=== PATIENT | male | born 1950 | race Caucasian/White ===

== ENCOUNTER 2021-02-03 09:50 | Emergency (ER) | payer MEDICARE, SELFPAY ==
--- NOTE | ~2021-02-03 | CT_ITS ---
EXAMINATION: CT abdomen pelvis wo con EXAM DATE: 02/03/2021 10:18 INDICATION: Right flank pain . Hematuria. TECHNIQUE: Spiral CT of the abdomen and pelvis was performed without contrast. Axial, coronal and sag ittal images were reviewed. The dose-length product (DLP) for this examination was 432.60 mGy-cm. T he exposure was tailored according to patient size (auto mA exposure control), and iterative reconstr uction (ASIR) was used as additional dose reduction technique. Comparison is made to prior examinatio n from 11/06/2016. FINDINGS: There is a 2 mm left mid ureteral stone identified on image 148. Mild right hydronephrosis , perinephric and periureteral fat stranding. Additional punctate right inferior calyceal stone. Ther e is a 4 mm left mid calyceal stone. Moderately enlarged prostate at 5.4 cm. Small left inguinal fat -containing hernia. The bladder is unremarkable. The liver, spleen, adrenal glands and pancreas are unremarkable. There are cholecystectomy clips. There is no retroperitoneal or pelvic lymphadenopat hy. The appendix is normal. There is mild descending and sigmoid colonic diverticulosis. There is no adj acent inflammatory change to suggest diverticulitis. The stomach and small bowel are unremarkable. There is expected amount of colonic stool. No free intraperitoneal gas. The heart is normal in si ze. There are no pericardial or pleural effusions. There are bibasilar linear opacities, subsegment al atelectasis. There are no osteoblastic or osteolytic lesions identified. IMPRESSION: 1. Left mid ureteral 2 mm stone, mild obstructive nephropathy. 2. Bilateral nephrolithiasis. 3. Mild colonic diverticulosis. 4. Prostatomegaly. Reviewed, dictated and finalized at location A.
[2021-02-03 10:00] VITALS: BP 141/73; PULSE 83; RESP 18; TEMP 36.4; O2SAT 98
--- NOTE | 2021-02-03 10:17 | PC.NURSE ---
Pt to CT at this time.
[2021-02-03 10:18] LABS: Basophils Absolute Auto 0.1 K/mm3 (0.0-0.1); Basophils Percent Auto 0.5 % (0.2-1.2); Eosinophils Absolute Auto 0.1 K/mm3 (0-0.3); Eosinophils Percent Auto 0.8 % (0-4.4); Hematocrit 46.9 % (42.0-52.0); Hemoglobin 15.5 g/dL (14.0-18.0); Immature Granulocyte Absolute 0.03 K/mm3 (0.00-0.031); Immature Granulocyte Percent A 0.3 % (0-0.5); Lymphocytes Absolute Auto 2.14 K/mm3 (0.9-3.2); Lymphocytes Percent Auto 22.5 % (18.3-44.2); Mean Corpuscular Volume 90.7 fl (80-100); Mean Platelet Volume 9.6 fl (7.4-10.4); Monocytes Absolute Auto 0.6 K/mm3 (0.1-0.6); Monocytes Percent Auto 6.7 % (2.6-8.5); Neutrophils Absolute Auto 6.6 K/mm3 (1.3-6.7); Neutrophils Percent Auto 69.2 % (45.5-73.1); Platelet Count Result 207 k/mm3 (150-375); Red Blood Count 5.17 M/mm3 (4.6-6.20); Red Cell Distribution Width 13.2 % (11.5-14.5); White Blood Count 9.5 K/mm3 (4.5-10.0)
--- NOTE | 2021-02-03 10:19 | ED.BACK ---
HPI - Back Pain/Injury General Chief Complaint: Back Pain/Injury Stated Complaint: flank pain/hematuria Time Seen by Provider: 02/03/21 10:03 Source: patient Mode of arrival: ambulatory Limitations: no limitations History of Present Illness HPI Narrative: Patient is a 7-year-old male complaining of right flank pain, sharp, 6 out of 10, now 0 out of 10, nonradiating accompanied by hematuria that started this morning. Patient denies any chest pain, shortness of breath, Ch[place] pain, nausea, vomiting, diarrhea, fever or chills. Patient denies any GI bleeding. Related Data Home Medications Medication Instructions Recorded Confirmed lisinopril DAILY 02/03/21 lorazepam PRN 02/03/21 melatonin 10 mg PO HS PRN 02/03/21 mirtazapine mg HS 02/03/21 rosuvastatin mg HS 02/03/21 tamsulosin mg PO DAILY 02/03/21 Allergies Allergy/AdvReac Type Severity Reaction Status Date / Time No Known Allergies Allergy Verified 02/03/21 10:07 Review of Systems Review of Systems: All systems reviewed & are unremarkable except as noted in HPI and below Constitutional: Constitutional: Denies body ache(s), Denies chills, Denies excessive sweating, Denies fatigue, Denies fever(s), Denies headache(s), Denies lethargy, Denies malaise, Denies weakness and Denies weight loss Eyes: Eyes: Denies blurry vision, Denies change in vision and Denies loss of vision ENT: Denies dizziness, Denies ear discharge, Denies headache(s), Denies lip swelling, Denies epistaxis, Denies nasal congestion, Denies neck pain, Denies throat swelling and Denies tongue swelling Cardiovascular: Cardiovascular: Denies chest pain, Denies chest pain at rest, Denies chest pain with activity, Denies diaphoresis, Denies rapid heart rate, Denies edema, Denies irregular heart rhythm, Denies lightheadedness, Denies palpitations, Denies dyspnea and Denies dyspnea on exertion Respiratory: Respiratory: Denies chest congestion, Denies cough, Denies hemoptysis, Denies dyspnea and Denies dyspnea on exertion Gastrointestinal: Gastrointestinal: Denies abdominal pain, Denies melena, Denies hematochezia, Denies diarrhea, Denies nausea, Denies vomiting and Denies hematemesis Musculoskeletal: Musculoskeletal: Denies abnormal gait, Denies deformity, Denies joint swelling, Denies limited range of motion, Denies neck pain and Denies numbness Neurologic: Denies Abnormal speech present, Denies abnormal gait, Denies confusion, Denies dizziness, Denies headache(s), Denies focal weakness, Denies loss of vision, Denies numbness, Denies Other visual disturbances, Denies Sensory deficit (Neuro) and Denies weakness Psychiatric: Psychiatric: Denies confusion, Denies depression, Denies auditory hallucinations, Denies homicidal ideation and Denies suicidal ideation Endocrine: Endocrine: Denies cold intolerance, Denies excessive sweating, Denies fatigue, Denies heat intolerance and Denies palpitations Hematologic/Lymphatic: Hematologic/Lymphatic: Denies easy bleeding and Denies easy bruising Allergic/Immunologic: Allergic/Immunologic: Denies lip swelling, Denies throat swelling and Denies tongue swelling [facility] Social History Social History Gender identity (if verbalized by the patient): Male Comments Past medical history: Hypertension, hyperlipidemia, BPH Family history: Noncontributory Social history: Non-smoker no EtOH or drug use. Exam Const: General: cooperative, healthy appearing, comfortable, no acute distress, well developed, alert and awake; No confusion Orientation/consciousness: oriented to person, oriented to place, oriented to time, patient oriented x3 and No confusion Limitations: no limitations HENMT: Head: normal to inspection, normocephalic and atraumatic Ears: hearing grossly normal bilaterally, TM normal on the right and TM normal on the left General nose exam: Normal external nose present, Normal nares present and No nasal discharge present Face and sinus: normal facial exam Mouth:
[2021-02-03] MEDS: SODIUM CHLORIDE 0.9% IV 1,000 ML 999 ML IV CONT (10:23)
[2021-02-03 10:30] LABS: Alanine Aminotransferase 32 U/L (4-50); Albumin Level 4.6 g/dL (3.5-5.1); Alkaline Phosphatase 58 U/L (38-126); Anion Gap 8 mmol/L (8-16); Aspartate Amino Transferase 28 U/L (17-59); Bilirubin,Total 0.9 mg/dL (0.2-1.3); Blood Urea Nitrogen 13 mg/dL (9-20); Calcium 9.1 mg/dL (8.4-10.2); Carbon Dioxide 28 mmol/L (22-30); Chloride 104 mmol/L (98-107); Estimated CRCL calculation 73 ml/min; Estimated Glomerular Filt Rate > 60; Glucose 136 mg/dL (75-110); Lipase 146 U/L (23-300); Sodium 140 mmol/L (137-145)
[2021-02-03 11:02] LABS: Add Urine Microscopic? YES; Appearance Urine Cloudy (Clear); Bilirubin Urine Negative (Negative); Blood Urine 3+ (Negative); Color Urine Red (Yellow); Glucose Urine UA Negative (Negative); Ketones Urine Negative (Negative); Leukocyte Esterase Ur Negative LEU/UL (Negative); Nitrate Urine Negative (Negative); Protein Urine 2+ mg/dL (Negative); Specific Grav Ur 1.016 (1.001-1.035); Urobilinogen Urine Negative mg/dL (<2.0)
[2021-02-03 11:45] VITALS: RESP 16
== END 2021-02-03 11:46 | disposition home or self-care (01) ==
PROVIDERS: Emergency Provider Emergency Medicine; PCP Family Medicine Adolescent Medicine
DX: N13.8 Other obstructive and reflux uropathy (principal); N20.2 Calculus of kidney with calculus of ureter; I10 Essential (primary) hypertension; E78.5 Hyperlipidemia, unspecified; N40.0 Benign prostatic hyperplasia without lower urinary tract symptoms; K57.90 Diverticulosis of intestine, part unspecified, without perforation or abscess without bleeding
CPT/HCPCS: 36415; 74176; 80053; 81001; 83690; 85025; 96360; 99284; J7030

== ENCOUNTER 2021-06-11 13:23 | Emergency (ER) | payer MEDICARE, SELFPAY ==
[2021-06-11 13:42] VITALS: BP 111/78; PULSE 92; RESP 18; TEMP 36.7; O2SAT 96
--- NOTE | 2021-06-11 13:46 | ED.EAR ---
HPI - Ear Problem General Chief complaint: Ear Stated complaint: ear clogged Source: patient and RN notes reviewed Limitations: no limitations History of Present Illness HPI Narrative: The patient, who is on several routine meds, presents with ear discomfort. Patient states he has about 1/2-month history of right ear fullness and decreased hearing. Symptoms are mild, unrelieved by Debrox ; he was seen by his PMD and placed on steroids at that time for possible sinusitis. No fever, cough, nasal or ear discharge, tinnitus, vertigo but he has mild decreased hearing acuity- Related Data Home Medications Medication Instructions Recorded Confirmed lisinopril 20 mg PO DAILY 02/03/21 06/11/21 lorazepam 1 mg PO BID PRN 02/03/21 06/11/21 melatonin 10 mg PO HS PRN 02/03/21 06/11/21 mirtazapine 15 mg PO HS 02/03/21 06/11/21 rosuvastatin 5 mg PO HS 02/03/21 06/11/21 tamsulosin 0.4 mg PO DAILY 02/03/21 06/11/21 Allergies Allergy/AdvReac Type Severity Reaction Status Date / Time No Known Allergies Allergy Verified 06/11/21 13:39 Review of Systems Review of Systems: General/Constitutional: No weight loss,fever Eyes: N0: Redness,discharge Ears/Nose/Throat: No: Epistaxis,ear discharge Respiratory: Denies: Hemoptysis Gastrointestinal: No Vomiting, Bleeding-rectal Skin: No Lumps, eruption Neurologic: No Focal Weakness,Sz Hematologic: Denies: Petechiae/Purpura Psychiatric: No: Suicida ideationl All Other Systems: Reviewed and Negative PMFSH Social History Social History Gender identity (if verbalized by the patient): Male Comments At time of signature, agree with nursing past medical, surgical, social and family history. There is no relevant family history pertinent to the presenting complaint Exam Narrative: General Appearance: Well appearing, Well nourished, No distress EYE: PERRLA, EOMI Ears: Bilateral TM inspissated wax bilaterally; TMs essentially intact; external ear bilateral thickened/aged helices, Auditory canal normal Nose: Normal nose, Nares clear Mouth/Throat: Normal appearing, Normal lips Neck: Supple, No adenopathy Respiratory: Airway patent, No respiratory distress Skin: Warm, Dry Neurological: A&O x3, CN II-X intact Psychiatric: Normal mood, Normal affect Course Vital Signs Vital signs: Vital Signs Temperature 98.1 F 06/11/21 13:42 Pulse Rate 92 06/11/21 13:42 Respiratory Rate 18 06/11/21 13:42 Blood Pressure 111/78 06/11/21 13:42 Pulse Oximetry 96 06/11/21 13:42 Temperature 98.1 F 06/11/21 13:42 Pulse Rate 92 06/11/21 13:42 Respiratory Rate 18 06/11/21 13:42 Blood Pressure 111/78 06/11/21 13:42 Pulse Oximetry 96 06/11/21 13:42 Procedures FB Removal Ear Foreign Body #1: Foreign Body Removal Date: 06/11/21 Location: ear canal (R) (BY Physician) Foreign Body Suspected: other (wax) TM intact pre-procedure: unable to visualize Foreign Body Removed: yes (wax) Foreign Body Removal Technique: irrigation (wax) Tympanic Membrane Intact Post Procedure: Yes Patient Tolerated Procedure: well Medical Decision Making Vital Signs Vital Signs: Vital Signs Temperature 98.1 F 06/11/21 13:42 Pulse Rate 92 06/11/21 13:42 Respiratory Rate 18 06/11/21 13:42 Blood Pressure 111/78 06/11/21 13:42 Pulse Oximetry 96 06/11/21 13:42 Temperature 98.1 F 06/11/21 13:42 Pulse Rate 92 06/11/21 13:42 Respiratory Rate 18 06/11/21 13:42 Blood Pressure 111/78 06/11/21 13:42 Pulse Oximetry 96 06/11/21 13:42 Discharge Plan Discharge Clinical Impression: Impacted ear wax Qualifiers: Laterality: bilateral Qualified Code(s): H61.23 - Impacted cerumen, bilateral Patient Disposition: Home, Self-Care Condition: Improved Prescriptions: No Action lisinopril 20 mg tablet 20 mg PO DAILY RF: 0 tamsulosin 0.4 mg capsule 0.4 mg PO DAILY RF: 0 mirtazapine 15 mg
== END 2021-06-11 14:40 | disposition home or self-care (01) ==
PROVIDERS: Emergency Provider Emergency Medicine
DX: H61.23 Impacted cerumen, bilateral (principal); E78.00 Pure hypercholesterolemia, unspecified; I10 Essential (primary) hypertension; N40.0 Benign prostatic hyperplasia without lower urinary tract symptoms; F41.9 Anxiety disorder, unspecified; F32.9 Major depressive disorder, single episode, unspecified
CPT/HCPCS: 69209; 99212; G0463

== ENCOUNTER 2021-09-12 15:49 | Emergency (ER) | payer MEDICARE, SELFPAY ==
--- NOTE | ~2021-09-12 | XR_ITS ---
EXAMINATION: XR foot RT min 3V EXAM DATE: 09/12/2021 16:14 INDICATION: injury to dorsal pain to rt foot. TECHNIQUE: Right foot dorsoplantar, lateral and oblique projections obtained and reviewed. There is no prior study for comparison. FINDINGS: There are no acute right foot fractures or dislocations identified. There is no subcutaneo us gas. The soft tissue is unremarkable. There are no radiopaque foreign bodies. IMPRESSION: No acute osseous findings. Reviewed, dictated and finalized at location B. OR [employer] DES[employer] IMPRESSION: No acute osseous findings.
[2021-09-12 16:02] VITALS: BP 147/74; PULSE 92; RESP 18; TEMP 36.8; O2SAT 99
--- NOTE | 2021-09-12 16:39 | ED.LOWEXIN ---
HPI - Extremity Injury (Lower) General Chief Complaint: Extremity Injury, Lower Stated Complaint: Right Foot Pain Time Seen by Provider: 09/12/21 16:28 Source: patient, RN notes reviewed and old records reviewed Mode of arrival: ambulatory Limitations: no limitations History of Present Illness HPI Narrative: 71 year old male presents to [facility] care with complaints of right foot dorsal distal area pain after dropping a shop vac on his right foot on Wednesday. Patient states that he does have some peripheral neuropathy to his feet but he is having discomfort with concern that he may of fractured his foot. Patient has mild swelling to the distal dorsal aspect of his right foot with no bruising noted. Patient is able to walk on foot but with limping gait, he is able to move all toes on own power with strong pulses to right foot with foot warm to touch and pink. MD complaint: foot injury (right) Related Data Home Medications Medication Instructions Recorded Confirmed lisinopril 20 mg PO DAILY 02/03/21 09/12/21 lorazepam 1 mg PO BID PRN 02/03/21 09/12/21 melatonin 10 mg PO HS PRN 02/03/21 09/12/21 mirtazapine 15 mg PO HS 02/03/21 09/12/21 rosuvastatin 5 mg PO HS 02/03/21 09/12/21 tamsulosin 0.4 mg PO DAILY 02/03/21 09/12/21 Allergies Allergy/AdvReac Type Severity Reaction Status Date / Time No Known Allergies Allergy Verified 09/12/21 15:58 Review of Systems Review of Systems: CONSTITUTIONAL: Denies fever, chills, or sweats. EYES: Denies visual changes, redness, or discharge. ENT: Denies rhinorrhea, congestion, sore throat, or otalgia. CARDIOVASCULAR: Denies chest pain, palpitations, or edema. RESPIRATORY: Denies cough or dyspnea. GASTROINTESTINAL: Denies abdominal pain, nausea, vomiting, or diarrhea. GENITOURINARY: Denies dysuria or hematuria. SKIN: Denies rash or itching. MUSCULOSKELETAL: Denies back pain,right distal dorsal foot pain with some swelling noted., or myalgia. NEUROLOGIC: Denies headache, numbness, or weakness. PSYCHIATRIC: positive for history of anxiety or depression. All systems reviewed & are unremarkable except as noted in HPI and below [facility] Past Medical History Medical History (Updated 09/15/21 @ 10:44 by Angela Spencer NP) Allergic sinusitis Anxiety and depression Cerebral aneurysm, nonruptured small resulting in cluster headaches Cluster headaches Elevated cholesterol GERD (gastroesophageal reflux disease) Hypertension Kidney stones Peripheral neuropathy Surgical History Surgical History (Updated 09/15/21 @ 10:40 by Angela Spencer NP) History of left knee replacement Hx of cholecystectomy S/P right knee arthroscopy Family History Family History (Updated 09/15/21 @ 10:39 by Angela Spencer NP) Mother Dementia History of blood clots Grandparent Diabetes mellitus Sibling Diabetes mellitus Hypertension Father Carcinoma of colon Social History Social History Gender identity (if verbalized by the patient): Male Comments At time of signature, agree with nursing past medical, surgical, social and family history. There is no relevant family history pertinent to the presenting complaint Exam Narrative: GENERAL: Well-appearing, well-nourished, and in no acute distress. HEAD: Normocephalic, atraumatic. EYES: PERRLA and EOMI. ENT: Nares clear, no rhinorrhea or epistaxis. Mucous membranes moist.TM's normal with good light reflex, throat pink with no lesions or exudates, no tonsil enlargement. NECK: Supple.no lymphadenopathy CHEST: Clear to auscultation. No respiratory distress.SAO2 99% on room air HEART: Regular rate and rhythm. No murmur heard. Normal peripheral pulses. ABDOMEN: Soft, nontender, nondistended, normal active bowel sounds. EXTREMITIES: Normal range of motion. No edema.Exception noted to pain to dorsal distal right foot with mild swelling, no bruising noted, walking with limping gait, pulses of right f
== END 2021-09-12 17:00 | disposition home or self-care (01) ==
PROVIDERS: Emergency Provider Registered Nurse; PCP Family Medicine Adolescent Medicine
DX: S90.31XA Contusion of right foot, initial encounter (principal); W20.8XXA Other cause of strike by thrown, projected or falling object, initial encounter; E78.00 Pure hypercholesterolemia, unspecified; K21.9 Gastro-esophageal reflux disease without esophagitis; I10 Essential (primary) hypertension; G62.9 Polyneuropathy, unspecified; Z96.652 Presence of left artificial knee joint
CPT/HCPCS: 73630; 99213; G0463

== ENCOUNTER 2022-06-07 08:01 | Emergency (ER) | payer MEDICARE, SELFPAY ==
--- NOTE | 2022-06-07 08:02 | ED.URI ---
HPI - URI/Sore Throat General Chief Complaint: Upper Respiratory Infection Stated Complaint: Cough, drainage, shaky Time Seen by Provider: 06/07/22 08:02 Source: patient Mode of arrival: ambulatory Limitations: no limitations History of Present Illness HPI Narrative: Mr. Garcia is a 72-year-old male patient presenting to the clinic today with complaints of cough, nasal drainage, and feeling shaky. He reports that he started to feel ill on . He has done COVID test on Wednesday and Wednesday and both were negative. He reports chills, nonproductive cough, nasal drainage going in the back of his throat, nausea, and feeling shaky this morning. He denies any known fever or chills. States that he received his COVID booster on 20 May. Does also report that he noticed some blood in his snot this morning when he blew his nose. Related Data Home Medications Medication Instructions Recorded Confirmed melatonin 10 mg tablet 10 mg PO HS PRN Insomnia 02/03/21 06/07/22 Allergies Allergy/AdvReac Type Severity Reaction Status Date / Time No Known Allergies Allergy Verified 06/07/22 08:09 Review of Systems Review of Systems: Pertinent positives per HPI. Patient denies any fever, chills, rash, headache, visual changes, dizziness, cough, runny nose, sore throat, shortness of breath, chest pain, palpitations, nausea, vomiting, diarrhea, constipation, abdominal pain, or any urinary issues. [facility] Past Medical History Medical History Allergic sinusitis Anxiety and depression Cerebral aneurysm, nonruptured small resulting in cluster headaches Cluster headaches Elevated cholesterol GERD (gastroesophageal reflux disease) Hypertension Kidney stones Peripheral neuropathy Surgical History Surgical History History of left knee replacement Hx of cholecystectomy S/P right knee arthroscopy Family History Family History Mother Dementia History of blood clots Grandparent Diabetes mellitus Sibling Diabetes mellitus Hypertension Father Carcinoma of colon Social History Social History Gender identity (if verbalized by the patient): Male Comments At the time of my signature, I reviewed and agree with the nursing past medical, surgical, social, and family history. There is no relevant family history pertinent to the patient complaint. Exam Narrative: General: Well-developed, well nourished, in no apparent distress Head: Normocephalic, atraumatic Eyes: Pupils equally round and reactive to light bilaterally, EOM intact, sclera and conjunctive clear, no discharge, lids normal Ears: TMs intact and clear, ear canals clear, no drainage, grossly hearing normal. Nose: Nares patent, clear nasal discharge, moderate inflammation, no sinus tenderness. Mouth: Oropharynx without lesions or masses, good dentition, MMM. Postnasal drip Neck: Supple, trachea midline, no enlargement of anterior or posterior cervical nodes, no thyroid masses or goiter palpable. Cardio: Regular rate and rhythm, s1 and s2 normal, no murmur appreciated. Resp: Clear to auscultation bilaterally anteriorly and posteriorly, no rhonchi, rales, wheezing or rubs Course Course Emergency Course: Portions of this record may have been created with voice recognition software. Level of Care: Express Care Visit Vital Signs Vital signs: Vital signs reviewed MDM - URI/Sore Throat MDM Narrative Medical decision making narrative: At the time of visit patient is resting comfortably on exam table. COVID testing was completed and was negative in the clinic. I suspect the patient has viral syndrome with an upper respiratory infection. I will go ahead and give him a course of some prednisone to help with the congesti
[2022-06-07 08:12] VITALS: BP 133/74; PULSE 114; RESP 24; TEMP 37.2; O2SAT 96
== END 2022-06-07 08:48 | disposition home or self-care (01) ==
PROVIDERS: Emergency Provider Nurse Practitioner Family; PCP Family Medicine Adolescent Medicine
DX: J06.9 Acute upper respiratory infection, unspecified (principal); B34.9 Viral infection, unspecified; Z20.822 Contact with and (suspected) exposure to COVID-19; E78.00 Pure hypercholesterolemia, unspecified; K21.9 Gastro-esophageal reflux disease without esophagitis; I10 Essential (primary) hypertension; G62.9 Polyneuropathy, unspecified; Z96.652 Presence of left artificial knee joint
CPT/HCPCS: 87426; 99213; C9803; G0463

== ENCOUNTER → 2022-06-26 07:57 | Outpatient (CLI) | payer MEDICARE, SELFPAY ==
--- NOTE | ~2022-06-26 | XR_ITS ---
EXAMINATION: XR chest 2V DATE: 06/26/2022 08:05 INDICATION: Cough, unspecified TECHNIQUE: PA and lateral views of the chest are obtained. COMPARISON: 08/30/2017 FINDINGS: The lungs are free of acute opacities. No pleural effusion or pneumothorax. The cardiomedia stinal silhouette is normal. There is mild thoracic spondylosis. IMPRESSION: 1. No acute cardiopulmonary abnormality. Reviewed, dictated and finalized at location A.
== END ==
PROVIDERS: PCP Family Medicine Adolescent Medicine; Visit Provider Family Medicine Adolescent Medicine
DX: R05.9 Cough, unspecified (principal)
CPT/HCPCS: 71046

== ENCOUNTER 2024-01-05 17:27 | Emergency (ER) | payer MEDICARE, SELFPAY ==
[2024-01-05 17:30] VITALS: BP 146/72; PULSE 113; RESP 16; TEMP 36.6; O2SAT 96
--- NOTE | 2024-01-05 17:54 | PC.NURSE ---
Patient called RN over to inform he had a large BM in the bathroom. Patient stating, I'm glad the toilet flushed.
--- NOTE | 2024-01-05 18:05 | PC.NURSE ---
Pt to ED desk, pt staes he was able to use bathroom and has major relief . Pt states he would like to leave. Pt IV removed and educated to seek care if symptoms return.
== END 2024-01-05 18:05 | disposition left against medical advice (07) ==
LOC: ANHED 18:10
PROVIDERS: PCP Family Medicine Adolescent Medicine
DX: R10.9 Unspecified abdominal pain (principal)
CPT/HCPCS: 99199

== ENCOUNTER 2024-02-09 17:36 | Emergency (ER) | payer MEDICARE, SELFPAY ==
[2024-02-09 17:45] VITALS: BP 155/72; PULSE 81; RESP 16; TEMP 37.2; O2SAT 97
--- NOTE | 2024-02-09 18:22 | ED.EAR ---
HPI - Ear Problem General Chief complaint: Ear Stated complaint: Left Ear Irritation Time Seen by Provider: 02/09/24 18:01 Source: patient and RN notes reviewed Mode of arrival: ambulatory Limitations: no limitations History of Present Illness HPI Narrative: Patient presents today complaining of a plugged sensation to the left ear since yesterday morning. Denies pain. Reports multiple episodes of cerumen impaction in the past. Related Data Home Medications Medication Instructions Recorded Confirmed melatonin 10 mg tablet 10 mg PO HS PRN Insomnia 02/03/21 02/09/24 rosuvastatin 5 mg tablet 5 mg PO DAILY 11/12/23 02/09/24 Allergies Allergy/AdvReac Type Severity Reaction Status Date / Time simvastatin AdvReac Unknown myalgia Verified 02/09/24 17:37 trazodone AdvReac Unknown Headache Verified 02/09/24 17:37 Review of Systems Review of Systems: CONSTITUTIONAL: Denies body aches, fever, chills, or sweats. EYES: Denies visual changes, redness, or discharge. ENT: Denies rhinorrhea, congestion, sore throat, or otalgia.+ left ear clogging CARDIOVASCULAR: Denies chest pain, palpitations, or edema. RESPIRATORY: Denies cough or dyspnea. GASTROINTESTINAL: Denies abdominal pain, nausea, vomiting, or diarrhea. GENITOURINARY: Denies dysuria or hematuria. SKIN: Denies rash, itching, or wounds. MUSCULOSKELETAL: Denies back pain, joint pain, or myalgia. NEUROLOGIC: Denies headache, numbness, tingling, or weakness. PSYCH: Denies depression or anxiety. [facility] Past Medical History Medical History Allergic sinusitis Anxiety and depression Cerebral aneurysm, nonruptured small resulting in cluster headaches Cluster headaches Elevated cholesterol GERD (gastroesophageal reflux disease) Hypertension Kidney stones Peripheral neuropathy Surgical History Surgical History History of left knee replacement Hx of cholecystectomy S/P right knee arthroscopy (2016) Family History Family History Mother Dementia History of blood clots Grandparent Diabetes mellitus Sibling Diabetes mellitus Hypertension Father Carcinoma of colon Social History Social History (Reviewed 02/09/24 @ 20:21 by Trinity Blank, [facility], ) Smoking status: Never smoker Second hand tobacco smoke exposure: No Alcohol intake: never Substance use: never Substance use type: does not use Lack of Transportation: No Lack of Food: Never True Current Housing: I Have Housing Concerned About Future Housing: No Difficulty Paying Gas/Electric Bills: No Difficulty Paying for Meds: No Currently Unemployed: No Education: High School Diploma/GED Difficulty w/ Childcare or Family Care: No Living arrangements: alone Occupation/Education: retired Gender identity (if verbalized by the patient): Male Spiritual care concerns: No Comments At time of signature, I have reviewed and agree with nursing past medical, surgical, social and family history unless otherwise noted. Please see nursing chart for further information. There is no relevant family history pertinent to the presenting complaint Exam Narrative: GENERAL: Well-appearing, well-nourished, and in no acute distress. HEAD: Normocephalic, atraumatic. EYES: EOMI. No redness or drainage. Conjunctivae normal. ENT: Mucous membranes pink and moist. Left cerumen impaction. Cerumen is packed deep in the canal. NECK: Normal AROM. CHEST: No respiratory distress. EXTREMITIES: Normal range of motion. No edema. SKIN: Warm, dry, no rash. Capillary refill normal. Normal skin turgor. NEURO: No focal deficits. Alert and oriented x3. Gait steady. PSYCH: Normal affect. No signs of depression or anxiety. Course Course Level of Care: Express Care Visit Vital Signs Vital signs: Vital Signs
== END 2024-02-09 18:30 | disposition home or self-care (01) ==
PROVIDERS: Emergency Provider Nurse Practitioner; PCP Family Medicine Adolescent Medicine
DX: H61.22 Impacted cerumen, left ear (principal); E78.00 Pure hypercholesterolemia, unspecified; K21.9 Gastro-esophageal reflux disease without esophagitis; I10 Essential (primary) hypertension; G62.9 Polyneuropathy, unspecified; Z96.652 Presence of left artificial knee joint; F41.9 Anxiety disorder, unspecified
CPT/HCPCS: 69209; 99212; G0463

== ENCOUNTER 2024-06-05 08:32 | Outpatient (CLI) | payer MEDICARE, SELFPAY ==
--- NOTE | 2024-06-05 08:50 | ECHO_ITS ---
Patient Info Name: Wan Garcia Age: 74 years : 1950 Gender: Male Ht: 75 in Wt: 235 lbs BSA: 2.39 m2 HR: 102 bpm BP: 146 / 90 mmHg Heart Rhythm: Sinus Rhythm Technical Quality: Good Exam Date: 06/05/2024 9:00 AM Exam Location: Echo Lab Patient Status: Outpatient Admit Date: 06/05/2024 Staff Ordering Physician: Galen Farias MD Senior Ui Web Developer: Izabel Brown RDCS Attending Provider: Galen Farias MD Referring Physician: Jarrett FARIAS; Exam Type: CA echo doppler color flow Study Info Indications R06.00 - Dyspnea, unspecified Complete two-dimensional, color flow and Doppler transthoracic echocardiogram is performed. Summary 1. Complete two-dimensional, color flow and Doppler transthoracic echocardiogram is performed. 2. Left ventricular chamber dimension is normal. 3. Left ventricular systolic function is normal, estimated at 65-70%. 4. The left ventricular diastolic function is grade I diastolic dysfunction. 5. E/e' 8 is minimally elevated. 6. There is mild aortic valve sclerosis. 7. No pulmonary hypertension, estimated pulmonary arterial systolic pressure is 23 mmHg. Left Ventricle E/e' 8 is minimally elevated. Left ventricular chamber dimension is normal. Left ventricular systolic function is normal, estimated at 65-70%. The left ventricular diastolic function is grade I diastolic dysfunction. Right Ventricle Right ventricular systolic function is normal and with normal TAPSE 2.6 cm. Right ventricular chamber dimension is moderately enlarged. Left Atria Left atrial chamber dimension is normal. Right Atria Right atrial chamber dimension is normal. Aortic Valve The aortic valve is trileaflet. There is mild aortic valve sclerosis. There is no aortic valve stenosis. There is no aortic valve regurgitation. Pulmonic Valve There is no pulmonic regurgitation. Mitral Valve There is no mitral valve stenosis. There is no mitral valve regurgitation. Tricuspid Valve There is no tricuspid valve regurgitation. No pulmonary hypertension, estimated pulmonary arterial systolic pressure is 23 mmHg. Pericardium/Pleural There is no pericardial effusion. Inferior Vena Cava Normal inferior vena cava with >50% collapse upon inspiration consistent with normal right atrial pressure, 5 mmHg. Aorta The aortic root size at the sinus of Valsalva is normal. Left Ventricular Outflow Tract Name Value Normal LVOT 2D LVOT Diameter 2.0 cm LVOT Doppler LVOT Peak Gradient 5 mmHg LVOT Mean Gradient 2 mmHg LVOT VTI 19 cm LVOT VTI/AV VTI Ratio 1.0 LVOT Stroke Volume 62 ml LVOT CO 5.3 l/min LVOT CI 2.2 l/min/m2 Pulmonic Valve Name Value Normal RVOT Doppler RVOT Peak Gradient 4 mmHg
== END 2024-06-05 08:33 | disposition home or self-care (01) ==
LOC: ANHCARD 08:33
PROVIDERS: PCP Family Medicine Adolescent Medicine; Visit Provider Family Medicine Adolescent Medicine
DX: R06.09 Other forms of dyspnea (principal); I35.8 Other nonrheumatic aortic valve disorders
CPT/HCPCS: 93306

== ENCOUNTER 2024-07-13 09:13 | Outpatient (CLI) | payer MEDICARE, SELFPAY ==
--- NOTE | ~2024-07-13 | NM_ITS ---
EXAMINATION: NM shena stress w perfusion DATE: 07/13/2024 11:28 INDICATION: Other forms of dyspnea. TECHNIQUE: Rest images were obtained following intravenous administration of 9.8 mCi Tc99m tetrofosmi n (Myoview). The patient was infused intravenously with Lexiscan (regadenoson). Then, 31.2 mCi Tc99m tetrofosmin (Myoview) was administered intravenously, and supine and prone stress images were obtaine d. Data was reconstructed into short axis and horizontal and vertical long axis SPECT images. Gated S PECT images were also obtained. COMPARISON: Myocardial perfusion imaging 03/06/2009 FINDINGS: There is no definite reversible or fixed perfusion abnormality to suggest ischemia or infar ction. There is no segmental wall motion abnormality. Left ventricular ejection fraction measures > 70%. IMPRESSION: 1. No definite ischemia or infarct. 2. Normal left ventricular ejection fraction measuring >70%. Reviewed, dictated and finalized at location A.
--- NOTE | 2024-07-13 09:19 | EST_ITS ---
Patient Info Name: Wan Garcia Age: 74 years : 1950 Gender: Male Ht: 75 in Wt: 235 lbs BSA: 2.39 m2 HR: 93 bpm BP: 126 / 76 mmHg Heart Rhythm: Sinus Rhythm Exam Date: 07/13/2024 10:18 AM Site Location: Exam Location: Echo Lab Patient Status: Outpatient Admit Date: 07/13/2024 Staff Ordering Physician: Galen Farias MD Attending Provider: Galen Farias MD Exercise Technologist: Radha Vega CT Exercise Physician: Ezekiel Taylor DO Exam Type: CA stress shena w NM Study Info Indications R06.09 - Other forms of dyspnea A regadenoson stress test was performed. Summary 1. 1. Negative lexiscan stress test for ischemic ST changes by ECG criteria. 2. 2. Stable hemodynamics throughout the test. 3. 3. Nuclear scan to follow and will be reported separately. Please correlate with it. 4. 4. Patient informed of the above results. Protocol: Lexiscan Stress ECG Details Stage: REST Duration (min): 0 min : 55 sec HR (bpm): 95 SBP (mmHg): 126 DBP (mmHg): 76 Stage: REST Duration (min): 8 min : 49 sec HR (bpm): 101 SBP (mmHg): 126 DBP (mmHg): 76 Stage: STAGE 1 Duration (min): 1 min : 0 sec HR (bpm): 104 SBP (mmHg): 139 DBP (mmHg): 77 Stage: RECOVERY Duration (min): 1 min : 0 sec HR (bpm): 126 SBP (mmHg): 139 DBP (mmHg): 77 Stage: RECOVERY Duration (min): 2 min : 0 sec HR (bpm): 121 SBP (mmHg): 139 DBP (mmHg): 77 Stage: RECOVERY Duration (min): 3 min : 0 sec HR (bpm): 112 SBP (mmHg): 145 DBP (mmHg): 72 Stage: RECOVERY Duration (min): 3 min : 5 sec HR (bpm): 113 SBP (mmHg): 145 DBP (mmHg): 72 Rest HR: 101 bpm Peak HR: 127 bpm Rest Sys BP: 126 mmHg Peak Sys BP: 145 mmHg Max Pred HR: 146 bpm % Max Pred HR: 87 % Target HR: 124 bpm Max RPP: 18,415 bpm*mmHg Termination Reason: Completed protocol Cardiac Symptoms: Shortness of breath Total Time: 1 min : 0 sec Rest Valerio BP: 76 mmHg Peak Valerio BP: 72 mmHg Total Dose: 0.4 mg Resting ECG Sinus tachycardia. Stress ECG No ST changes. Arrhythmias None. Report Signatures
== END 2024-07-13 09:14 | disposition home or self-care (01) ==
PROVIDERS: PCP Family Medicine Adolescent Medicine; Visit Provider Family Medicine Adolescent Medicine
DX: R06.09 Other forms of dyspnea (principal)
CPT/HCPCS: 78452; 93017; A9502; J2785